=== PATIENT | male | born 1980 | race Caucasian/White ===

== ENCOUNTER 2017-11-11 07:49 | Day surgery (SDC) | payer OTHER, SELFPAY ==
[2017-11-11 08:07] VITALS: BP 130/88; PULSE 80; RESP 16; TEMP 36.6; O2SAT 97; BMI 31.1
--- NOTE | 2017-11-11 11:11 | PCM.DC.ORTHO ---
Discharge Diet: No Restrictions Discharge Activity: May Not Drive May shower in (days): 1 Ice area for (Minutes): 20 - Ice area for 20 minutes each hour while awake Keep extremity elevated above heart level: Operative Extremity Call your doctor if your incision/area has: Continuous Slow Oozing, Sudden Increased Bleeding, Increased Pain/ Swelling, Increased Redness, Foul Smelling Discharge Call your doctor if you observe: Fever of 101 or Higher, Coldness, Increased Pain, Numbness or Tingling, Change in Color Suture Line Care: Avoid Pulling/Pushing Cleanse incision/area with: Keep Dressing Clean & Dry - Do not remove Additional Instructions: sling for comfort, do not remove dressing Allergies/Adverse Reactions: Allergies No Known Allergies Allergy (Verified 11/08/17 08:46) Medications to take at Discharge Hydrocodone Bitart/Apap 5-325 [Miles 5/325] 1 - 2 tablet PO Q6H PRN PRN 7 Days #56 tablet 11/11/17 The following prescriptions were given: Hydrocodone Bitart/Apap 5-325 [Miles 5/325] 1 - 2 tablet PO Q6H PRN PRN 7 Days #56 tablet PRN Reason: Mild-Moderate (pain scale 1-5) Primary Care Physician: Care Physician,No Primary [Primary Care Provider] -
--- NOTE | 2017-11-11 11:16 | DCINST_ITS ---
Discharge Diet: No Restrictions Discharge Activity: May Not Drive May shower in (days): 1 Ice area for (Minutes): 20 - Ice area for 20 minutes each hour while awake Keep extremity elevated above heart level: Operative Extremity Call your doctor if your incision/area has: Continuous Slow Oozing, Sudden Increased Bleeding, Increased Pain/ Swelling, Increased Redness, Foul Smelling Discharge Call your doctor if you observe: Fever of 101 or Higher, Coldness, Increased Pain, Numbness or Tingling, Change in Color Suture Line Care: Avoid Pulling/Pushing Cleanse incision/area with: Keep Dressing Clean & Dry - Do not remove Additional Instructions: sling for comfort, do not remove dressing Allergies/Adverse Reactions: Allergies No Known Allergies Allergy (Verified 11/08/17 08:46) Medications to take at Discharge Hydrocodone Bitart/Apap 5-325 [Alicia 5/325] 1 - 2 tablet PO Q6H PRN PRN 7 Days # 56 tablet 11/11/17 The following prescriptions were given: Hydrocodone Bitart/Apap 5-325 [Alicia 5/325] 1 - 2 tablet PO Q6H PRN PRN 7 Days # 56 tablet PRN Reason: Mild-Moderate (pain scale 1-5) Primary Care Physician: Care Physician,No Primary [Primary Care Provider] -
--- NOTE | 2017-11-11 11:25 | OP.PCM_ITS ---
Report of Operation Date of Procedure: 11/11/17 Pre-Operative Diagnosis: Distal biceps tendon rupture right elbow Post-Operative Diagnosis: Distal biceps tendon rupture right elbow Surgery/Procedure Performed:: Primary repair and tenodesis of distal biceps tendon right elbow Description of Surgical Findings:: Rupture retraction of distal biceps tendon right elbow [place] aide: Nigel Johnson Type of Anesthesia:: General Anesthesiologist: Kristen Mckinley Estimated Blood Loss (mL): 100 Fluids Replaced: See anesthesia report Description of Procedure: Implants: Biomet toggle lock Surgical indications: Grayson is a 37-year-old male that sustained a distal biceps tendon rupture while at work. MRI confirms the presence of this rupture he has elected to undergo the above procedure Procedure description: Grayson was greeted in the preoperative area his right elbow was marked with surgical marker. Preoperative antibiotics were administered. He was then taken or [address] in a stable condition. After adequate anesthesia was obtained and airway was secured well-padded tourniquet was placed on patient's right upper extremity. The arm was then prepped and draped in usual sterile fashion. Surgical timeout was performed and surgery was commenced. A longitudinal incision was made approximately 2 cm distal to the cubital fossa. Dissection was then carried length of the incision and superficial vasculature was immediately identified. Attempted blunt dissection medial to the extensor wad of the forearm and immediately encountered significant bleeding. I did identify the anterior lateral cutaneous nerve of the forearm this was retracted and attempted to protect this throughout the procedure. Patient continued to have severe venous bleeding that was continuingly encountered. Attempted to ligate these vessels and coronary disease vessels which was extremely difficult as bleeding continued significantly. This point I did elect to insufflate the tourniquet in order to assist with controlling the bleeding. Once the bleeding was slowed was unable to cauterize these vessels. I then proceeded with the surgery and bluntly dissected down to the radial tuberosity. Placed a Hohmann retractor medial and lateral to the radial tuberosity and fully supinated the forearm in order to identify the tuberosity and debrided the tuberosity. Once this was complete I then digitally dissected proximally and identified the ruptured biceps tendon within the cubital fossa. I was unable to milk this down into the surgical field and grabbed this with 2 Allis clamps. The distal aspect of the biceps tendon was then debrided to nice appearing tendon tissue and was whipstitched with 2 of the provided stitches of the toggle lock implant. I then attached the implant to the end of the biceps tendon for later repair. Once this was complete with the formal taken. Pronation retractors were then placed medial and lateral to the radius exposing the radial head. A guidepin was then placed bicortically through the radial tuberosity and overdrilled with a 4 mm cannulated drill bicortically and a second tunnel was made just proximal to this created a oblong type tunnel. The toggle lock implant was then placed on the security infrastructure engineer and placed bicortically and flipped on the posterior aspect of the radius this was then toggled into position advancing the tendon into the repaired tunnel of the radius. There was some tension on this and patient lacked approximately 5? of full extension. At this point the wound was packed with Ray-Kristofer and the tourniquet was deflated. There was essentially no bleeding noted at this point the wound was completely dry. I did have the anesthesiologist increase his pressure slightly to be sure that this was indeed dry as I was concerned that maybe there be some bleeding after the patient was awake again this was dry and there was no active bleeding identified in the wound. Wound was then irrigated and a layered closure was performed. Patient was then placed in a sterile dressing and a posterior splint. Edin my physician nurses assistant was integral in all portions of this procedure. He assisted with retraction helped assist with controlling bleeding and assist with the closure and application of the dressing and splint. Postoperatively: We will maintain the splint for 2 weeks. At that point patient will initiate physical therapy passive range of motion and initiated active range of motion at 4-6 weeks with progressive resistance exercises at 8 weeks - Complications None known - Admit VTE Documentation VTE Present on Admission: No Reason prophylaxis not ordered:: Procedure Not Indicated
[2017-11-11 11:36] VITALS: BP 130/88; BP 140/103; PULSE 110; RESP 18; TEMP 36.4; O2SAT 100
[2017-11-11 11:45] VITALS: BP 130/88; BP 160/86; PULSE 113; RESP 18; O2SAT 99
[2017-11-11 12:00] VITALS: BP 130/88; BP 156/93; PULSE 102; RESP 18; O2SAT 99
[2017-11-11 12:10] VITALS: BP 130/88; BP 149/97; PULSE 102; RESP 18; TEMP 36.1; O2SAT 94
[2017-11-11 13:10] VITALS: BP 130/88
== END 2017-11-11 13:10 | disposition home or self-care (01) ==
LOC: SDC 07:56 → AC 07:56
PROVIDERS: Visit Provider Orthopaedic Surgery
PROC: (CPT 24341; principal; 2017-11-11 09:15)
DX: S46.211A Strain of muscle, fascia and tendon of other parts of biceps, right arm, initial encounter (principal); W18.40XA Slipping, tripping and stumbling without falling, unspecified, initial encounter; Y93.89 Activity, other specified; Y92.89 Other specified places as the place of occurrence of the external cause; Y99.0 Civilian activity done for income or pay; M10.9 Gout, unspecified; F17.210 Nicotine dependence, cigarettes, uncomplicated
CPT/HCPCS: 24342; J7120; J2405